=== PATIENT | male | born 1975 | race Two or more races ===

== ENCOUNTER 2023-03-08 03:58 | Emergency (ER) | payer BC, OTHER ==
[2023-03-08] MEDS ORDERED: BOOSTRIX VACCINE (TETANUS/DIPHTH/ACEL. PERTUSSIS) 0.5ML SYR IM.IMMUN ONE (07:20)
[2023-03-08] MEDS ORDERED: AUGMENTIN 875 MG TAB PO ONE (07:55)
[2023-03-08] MEDS ORDERED: AMOX875T2 PO (07:59)
[2023-03-08 08:20] VITALS: BP 142/73
== END 2023-03-08 08:20 | disposition home or self-care (01) ==
LOC: M ED 03:58
DX: S01.409A Unspecified open wound of unspecified cheek and temporomandibular area, initial encounter (principal); W54.0XXA Bitten by dog, initial encounter; Y92.009 Unspecified place in unspecified non-institutional (private) residence as the place of occurrence of the external cause; Y93.K9 Activity, other involving animal care; Y99.8 Other external cause status

== ENCOUNTER 2024-06-22 11:35 | Emergency (ER) | payer BC ==
[~2024-06-22] VITALS: Ht 180.3 cm; Wt 75.0 kg
[~2024-06-22 11:35] MED LIST: AMOX875T2 PO
[2024-06-22] MEDS: diazePAM 5MG TABLET PO ONE (14:34)
[2024-06-22] MEDS: ACETAMINOPHEN 500 MG TAB PO ONE (14:34)
[2024-06-22] MEDS: LIDOCAINE 5% (LIDODERM) PATCH TD ONE (14:34)
[2024-06-22] MEDS ORDERED: METH-1164 PO (15:26)
[2024-06-22] MEDS ORDERED: LIDO5DIS41 TD (15:26)
[2024-06-22] MEDS ORDERED: ACET-897 PO (15:26)
[2024-06-22 15:47] VITALS: BP 118/73; TEMP 97; O2SAT 100
== END 2024-06-22 15:48 | disposition home or self-care (01) ==
LOC: M ED 11:35
DX: M54.50 Low back pain, unspecified (principal); F17.210 Nicotine dependence, cigarettes, uncomplicated; Z88.8 Allergy status to other drugs, medicaments and biological substances; Z79.1 Long term (current) use of non-steroidal anti-inflammatories (NSAID); Z79.899 Other long term (current) drug therapy

== ENCOUNTER 2024-11-04 11:54 | Emergency (ER) | payer BC ==
[~2024-11-04] VITALS: Ht 180.3 cm; Wt 80.5 kg
[~2024-11-04 11:54] MED LIST changes: +ACET-897 PO; +LIDO5DIS41 TD; +METH-1164 PO
[2024-11-04 12:39] VITALS: BP 117/70
[2024-11-04] MEDS: ASPIRIN 81MG CHEW TABLET PO ONE (12:39)
[2024-11-04] MEDS: NITROGLYCERIN 0.4MG SUBL TABLET SL PRN (12:39)
[2024-11-04 12:45] LABS: BASO % 0.5 % (0.0-1.0); EOS # 0.1 10^3/uL (0.0-0.5); EOS % 1.5 % (0.0-3.0); HEMATOCRIT 46.4 % (42.0-52.0); HEMOGLOBIN 16.1 g/dl (13.5-17.5); LYMPH # 2.1 10^3/uL (1.5-5.0); LYMPH % 24.4 % (24.0-44.0); MEAN CORPUSCULAR HEMOGLOBIN 32.7 pg (27.0-33.0); MEAN CORPUSCULAR HGB CONC 34.7 g/dl (32.0-36.5); MEAN CORPUSCULAR VOLUME 94.1 fl (80.0-96.0); MONO # 0.5 10^3/uL (0.0-0.8); MONO % 6.1 % (2.0-8.0); NEUTROPHILS # 5.8 10^3/uL (1.5-8.5); NEUTROPHILS % 67.2 % (36.0-66.0); PLATELET COUNT, AUTOMATED 219 10^3/uL (150-450); RED BLOOD COUNT 4.93 10^6/uL (4.30-6.10); WHITE BLOOD COUNT 8.7 10^3/uL (4.0-10.0)
[2024-11-04 12:56] LABS: INR 0.92; PARTIAL THROMBOPLASTIN TIME 27.7 SECONDS (24.8-34.2); PROTHROMBIN TIME 12.7 SECONDS (12.5-14.5)
[2024-11-04 13:11] LABS: CK-MB VALUE MASS 16.6 NG/ML (<3.6)
[2024-11-04 13:13] LABS: LIPASE 25 U/L (12-53)
[2024-11-04 13:15] LABS: ALBUMIN 4.1 G/DL (3.2-5.2); ALKALINE PHOSPHATASE 71 U/L (40-129); ALT/SGPT 30 U/L (7.0-40); AST/SGOT 37 U/L (<34); BILIRUBIN,DIRECT < 0.1 MG/DL (<0.4); BILIRUBIN,TOTAL 0.3 MG/DL (0.3-1.2); BLOOD UREA NITROGEN 15 MG/DL (9-23); CARBON DIOXIDE LEVEL 26 MMOL/L (20-31); CHLORIDE LEVEL 107 MMOL/L (98-107); CREATININE FOR GFR 0.79 MG/DL (0.70-1.30); GLOMERULAR FILTRATION RATE > 60.0 (>56); GLUCOSE, FASTING 122 MG/DL (60-100); POTASSIUM SERUM 4.6 MMOL/L (3.5-5.1); SODIUM LEVEL 140 MMOL/L (136-145); TOTAL PROTEIN 6.8 G/DL (5.7-8.2)
[2024-11-04 13:16] LABS: FREE T4 1.14 NG/DL (0.89-1.76); THYROID STIMULATING HORMONE 0.806 uIU/ML (0.55-4.78)
[2024-11-04 13:20] LABS: CPK CREATINE PHOSPHOKINASE 305 U/L (46-171); MB/CK RELATIVE INDEX 5.44 (< OR =4)
[2024-11-04] MEDS ORDERED: ISOVUE-370 76% 100ML VIAL As Ordered ONE (13:25)
[2024-11-04] MEDS: fentaNYL 100 MCG/2 ML INJECTION IV ONE ×4 (13:50→16:00)
[2024-11-04] MEDS: NS (Normal Saline) 0.9% 1,000 ML IV ONE (13:50)
[2024-11-04 14:15] LABS: CK-MB VALUE MASS 25.4 NG/ML (<3.6)
[2024-11-04 14:24] LABS: MB/CK RELATIVE INDEX 6.71 (< OR =4)
[2024-11-04] MEDS: HEPARIN SOD (PORCINE) 5000UNITS/ML 1ML VIAL/SYRINGE IV ONE (14:34)
[2024-11-04] MEDS: HEPARIN DRIP 25,000 UNITS in IV 1 EA IV SCH (14:35)
[2024-11-04 15:50] VITALS: TEMP 98.5; O2SAT 99
[2024-11-04] MEDS: CLOPIDOGREL 300 MG TAB (PLAVIX) PO STA (15:55)
[2024-11-04 16:01] VITALS: BP 98/62
== END 2024-11-04 16:01 | disposition short-term general hospital (02) ==
LOC: M ED 11:54
DX: I21.4 Non-ST elevation (NSTEMI) myocardial infarction (principal); R00.1 Bradycardia, unspecified; E78.5 Hyperlipidemia, unspecified; F17.210 Nicotine dependence, cigarettes, uncomplicated; Z88.8 Allergy status to other drugs, medicaments and biological substances; Z79.1 Long term (current) use of non-steroidal anti-inflammatories (NSAID); Z79.899 Other long term (current) drug therapy
CPT/HCPCS: 71045; 71275; 80048; 80076; 82550; 82553; 83690; 84439; 84443; 84484; 85025; 85610; 85730; 93005; 93041; 94760; 96374; 96375; 96376; 99285; J3010; Q9967